=== PATIENT | female | born 1955 | race Caucasian/White ===

== ENCOUNTER 2017-04-23 19:00 | Emergency (ER) | payer SELFPAY ==
[~2017-04-23] VITALS: Ht 160 cm; Wt 63.0 kg
[~2017-04-23 19:00] MED LIST: IBUP-2029
[2017-04-23 19:29] VITALS: BP 121/71
== END 2017-04-23 21:50 | disposition left against medical advice (07) ==
LOC: ER 19:00
DX: R07.89 Other chest pain (principal); Z53.21 Procedure and treatment not carried out due to patient leaving prior to being seen by health care provider